=== PATIENT | male | born 1960 | race Caucasian/White ===

== ENCOUNTER 2024-03-10 15:12 | Emergency (ER) | payer OTHER, SELFPAY ==
[2024-03-10 15:29] VITALS: BP 140/85
--- NOTE | 2024-03-10 15:35 | ED.GENMED ---
ED Provider Triage
<Jeramy Ordoñez Jr., PA-C - Last Filed: 03/10/24 15:43>
-
Patient seen by provider in Triage?: Seen in Triage
Attestation: A medical screening examination has been initiated by a qualified medical provider. Based on the assessment performed at this time, it has been determined that an emergent medical condition may exist and the patient has been informed
that further medical evaluation and possible additional diagnostic testing may be needed.
HPI: 63-year-old male presenting to the emergency department with concerns of anxiety attack. Has a long history of this. Currently transitioning from venlafaxine to buspirone. Just recently stopped venlafaxine 3 days ago. Patient given dose of
Xanax here pending additional assessment.
GENERAL: Alert , in no apparent distress
EYE: No visual abnormalities.
NECK: Trachea midline
ENT: No visible abnormalities.
LUNGS: No acute respiratory distress
NEUROLOGICAL: Alert and oriented
SKIN: Skin intact. No visible changes.
MUSCULOSKELETAL: Moving extremities normally
PSYCH: Normal and appropriate interaction.
This is a medical evaluation conducted in person to initiate diagnostic evaluation and provide initial therapeutics. Please see further documentation by the treating clinician.
History of Present Illness
<Jeramy Ordoñez Jr., PA-C - Last Filed: 03/10/24 15:43>
General
Chief Complaint: Anxiety
Time Seen by Provider: 03/10/24 16:04
<RAINA Islas - Last Filed: 03/10/24 16:45>
General
Source: patient
Exam Limitations: none
Nursing documentation reviewed up to this point in time: agreed with
History of Present Illness
History of Present Illness:
Patient is a 63-year-old male who has a history of anxiety presents to the ER for evaluation. Patient reports for the past 2 weeks along with his family physician they have been weaning him off of Venlafaxine and stared Buspar. Patient reports he
has not tolerated this well and his anxiety has been worse. He also reports is a lot of other circumstances going around which is attributing to the cause of his anxiety. This morning he woke up with a panic attack. He does have Ativan at home
and took a dose at 9 AM. He was in contact with his family doctor and took an additional dose at 1 PM. He was given Xanax 0.5 mg prior to my exam during triage.
Patient now reports he is feeling much better he had a feeling of dread and that is improving. He never had any suicidal thoughts. He does have Ativan at home. He also was in contact with his family doctor before coming to the ER and he
instructed him to stop his BuSpar and restart Venlafaxine.
Patient has no other physical complaints.
Past History
<ALFREDO Horowitz Jr.-Anne - Last Filed: 03/10/24 15:43>
Past History
ED Past Medical History: GERD and Hypercholesterolemia
ED Past Surgical History: Other (Hernia)
Social History
Tobacco: Non-smoker
Living: with family
Employment: Employed
Family History
Family History: Negative Early CAD
Review of Systems
<RAINA Islas - Last Filed: 03/10/24 16:45>
Review of Systems
Allergies reviewed?: Yes
All Other Systems: ROS reviewed and negative except as documented in HPI and ROS
Constitutional: Reports no symptoms
Respiratory: Reports no symptoms
Cardiac: Reports no symptoms
ABD/GI: Reports no symptoms
: Reports no symptoms
Musculoskeletal: Reports no symptoms
Skin: Reports no symptoms
Neurological: Reports no symptoms
Psychiatric: Reports depression and anxiety; Denies suicidal
Phy Exam
<RAINA Islas - Last Filed: 03/10/24 16:45>
General Physical Exam
General Presentation: no apparent distress
General age: appears stated age
General Skin: warm and dry
General Habitus: obese
General Mental: alert
General Hydration: appears well hydrated
Cardiovascular Exam
Cardiovascular Exam: regular rate/rhythm, no murmur and normal peripheral pulses
Pulmonary Exam
Pulmonary Exam: lungs clear and no respiratory distress
Neurological Exam
Neurological Exam: alert and oriented x3
Musculoskeletal Exam
Musculoskeletal Exam: full ROM
Skin Exam
Skin Exam: normal color and warm/dry
Psychiatric Exam
Psychiatric Exam: normal mood/affect
Course
<Jeramy Ordoñez Jr., PA-C - Last Filed: 03/10/24 15:43>
Orders/Labs/Results
Orders:
Orders
03/10/24 15:39
Alprazolam [Xanax] 0.5 mg PO NOW STA
Vital Signs
Initial and Last Documented VS:
Initial Vital Signs
Temp Pulse Resp BP Pulse Ox
98.0 F 110 16 140/85 98
03/10/24 15:29 03/10/24 15:29 03/10/24 15:29 03/10/24 15:29 03/10/24 15:29
Last Documented Vital Signs
Temp Pulse Resp BP Pulse Ox
98.0 F 92 18 120/78 98
03/10/24 15:29 03/10/24 16:34 03/10/24 16:34 03/10/24 16:34 03/10/24 15:29
<RAINA Islas - Last Filed: 03/10/24 16:45>
Orders/Labs/Results
Orders:
Orders
03/10/24 15:39
Alprazolam [Xanax] 0.5 mg PO NOW STA
Vital Signs
Initial and Last Documented VS:
Initial Vital Signs
Temp Pulse Resp BP Pulse Ox
98.0 F 110 16 140/85 98
03/10/24 15:29 03/10/24 15:29 03/10/24 15:29 03/10/24 15:29 03/10/24 15:29
Last Documented Vital Signs
Temp Pulse Resp BP Pulse Ox
98.0 F 92 18 120/78 98
03/10/24 15:29 03/10/24 16:34 03/10/24 16:34 03/10/24 16:34 03/10/24 15:29
<RAINA Islas - Last Filed: 03/10/24 16:45>
MDM/Problems Addressed
Differential Diagnosis Includes:
Not limited to anxiety
MDM/Problems Addressed:
Patient has a longstanding history of anxiety and was recently being weaned off of his prior antidepressant and a new 1 was started. During this process his anxiety has increased. His family doctor was aware he was in touch with his family doctor
today. He does have Ativan as needed and took 2 doses at home prior to come to the ER. He does feel much better. Does have a plan in place to stop the new antidepressant buspirone and restart his previous 1. He is in very close contact with his
family doctor. He describes feeling very anxious and has a lot going on in addition to his current anxiety. He had a feeling of dread however denies any suicidal thoughts. He does feel much better feels well enough to go home. He was given a
very small dose of Xanax here in the ER however he has no acute distress. He is awake alert he is nondrowsy. Patient is on a much higher dose of Ativan at home and is a large male. Pt to f/ u with his pcp for further evaluation and management of
care. I did speak with crisis who will also drop off outpatient therapy referral info.
<RAINA Islas - Last Filed: 03/10/24 16:45>
*Critical Care Note
Total Time (30-74mins, 75-104mins- exclusive of procedures): Not Applicable
ED Attending Note
<Jeramy Ordoñez Jr., PA-C - Last Filed: 03/10/24 15:43>
-
Portions of this chart may have been created with voice recognition software.� Occasional wrong word or��sound alike� substitutions may have occurred due to the inherent limitations of voice recognition software.
Discharge Plan
Departure
Patient Disposition: Home (Routine Discharge)
Date of Disposition: 03/10/24
Time of Disposition: 16:43
Patient with high blood pressure during this ER visit?: Yes
Condition: Fair
Covid-19: Not Applicable
Discharge Problem:
Anxiety
Instructions: Anxiety, Adult (DC), BLOOD PRESSURE
Prescriptions:
No Action
Allopurinol
150 mg PO BID
multivitamin [Multi-Day] 1 EACH tablet
1 ea PO DAILY
omeprazole [Prilosec] 20 MG capsule,delayed release(DR/EC)
20 mg PO .EVERY OTHER DAY
Lipitor:
1 tab PO QPM
metformin 500 MG tablet
500 mg PO BID
venlafaxine [Effexor XR] 37.5 MG capsule,extended release 24hr
75 mg PO DAILY
lorazepam 1 MG tablet
1 mg PO PRN PRN (Reason: anxiety)
Activity Restrictions/Additional Instructions:
Continue to take your medications as prescribed by your family doctor. Please give your family doctor a call tomorrow to further discuss plan of care return if any worsening of symptoms.
Interventions
Interventions:
*Risk Screen - Suicide Last Done: 03/10/24 15:14
*General Assessment Last Done: 03/10/24 16:35
*Neglect/Abuse Screening Last Done: 03/10/24 15:29
ED- Fall Risk Assessment Last Done: 03/10/24 16:35
*ED COVID-19 Vaccine History Last Done: 03/10/24 16:35
ED-Psychological Assessment Last Done: 01/06/25 16:35
Discharge Date and Time
Print Language: KHMER
[2024-03-10] MEDS: XANAX 0.5 MG PO (15:43)
[2024-03-10 16:34] VITALS: BP 120/78
== END 2024-03-10 17:24 | disposition home or self-care (01) ==
LOC: EMR 15:12
PROVIDERS: EMERGENCY PHYSICIAN Emergency Medicine; FAMILY PHYSICIAN Family Medicine
DX: F41.9 Anxiety disorder, unspecified (principal); K21.9 Gastro-esophageal reflux disease without esophagitis; E78.00 Pure hypercholesterolemia, unspecified
CPT/HCPCS: 99282

== ENCOUNTER 2024-04-06 20:50 | Emergency (ER) | payer OTHER, SELFPAY ==
[2024-04-06 21:06] VITALS: BP 124/85
[2024-04-06 22:28] VITALS: BMI 36.0
[2024-04-06 22:40] VITALS: BP 97/77
[2024-04-06 22:53] LABS: % Basophils 0.3 % (0-2); % Eosinophils 1.4 % (0-6); % Immature Granulocytes 0.1 % (0-0.5); % Lymphocytes 37.6 % (20.5-51.1); % Monocytes 8.5 % (1.7-9.3); % Neutrophils 52.1 % (42.2-75.2); Absolute Eosinophils 0.1 10^3/uL (0-0.7); Absolute Lymphocytes 2.9 10^3/uL (1.2-3.4); Absolute Monocytes 0.7 10^3/uL (0.1-0.6); Hematocrit 44.9 % (39.0-52.0); Hemoglobin 14.8 g/dL (13.0-18.0); Mean Corpuscular Hgb 27.1 pg (27.0-31.0); Mean Corpuscular Volume 82.1 fL (80.0-94.0); Mean Platelet Volume 9.2 fL (7.4-10.4); Nucleated Red Blood Cells % 0 % (-); Platelet Count 232 10^3/uL (130-400); Red Blood Cell Count 5.47 10^6/uL (4.70-6.10); Red Cell Dist. Width 12.8 % (11.5-14.5); White Blood Cell Count 7.7 10^3/uL (4.8-10.8)
[2024-04-06 23:13] LABS: ALT (SGPT) 24 U/L (0-50); AST (SGOT) 28 U/L (17-59); Albumin 4.3 g/dl (3.5-5.0); Alkaline Phosphatase 82 U/L (38-126); Blood Urea Nitrogen 17 mg/dl (9-20); Carbon Dioxide 22 mmol/L (22-30); Chloride 104 mmol/L (98-107); Estimated Creatinine Clearance 117 ml/min; Glucose 106 mg/dl (70-99); Potassium 4.6 mmol/L (3.5-5.1); Sodium 137 mmol/L (135-145); Total Bilirubin 1.2 mg/dl (0.2-1.3); eGFR > 60.00
[2024-04-06 23:56] VITALS: BP 97/64
[2024-04-06 23:56] LABS: COVID-19 Antigen Negative (Negative)
[2024-04-07] MEDS: DUONEB 3 ML INH (00:22)
[2024-04-07 00:26] VITALS: BP 96/65
--- NOTE | 2024-04-07 00:31 | ED.GENMED ---
History of Present Illness
General
Chief Complaint: Cold/Flu/URI Symptoms
Source: patient
Exam Limitations: none
Time Seen by Provider: 04/06/24 22:51
Nursing documentation reviewed up to this point in time: agreed with
History of Present Illness
History of Present Illness:
Patient is a 63-year-old male with a history of [id number] diabetes, hyperlipidemia, GERD, depression and anxiety presents for shortness of breath and upper respiratory symptoms. Patient says that about 2 weeks ago he was in [place]
after flying there and he noticed that with exertion he would feel winded he also was having lightheadedness especially with moving around.. This is unusual for him. He decided he would come back home and get checked out but when he returned 1
week ago he started with a cough, cold, fever symptoms and suspected he had the flu. He stayed home a week and has not felt well, he has had a cough and some audible wheezing. Patient's not a smoker and does not use inhalers for asthma. He has
noticed that he has been extremely anxious all week which is unusual for him to feel this anxious, patient says he is not able to really sleep and he feels like his heart is racing. He started wondering if he was having a heart attack.
He has never seen a panel coverer here. Patient has not had a fever.
HE HAS BEEN ALTERNATING SOME XANAX 0.25 AND ATIVAN 1 MG (TAKING 1-2 ATIVAN A DAY AND MABYE A XANAX HERE AND THERE) FOR A FEW DAYS
THIS FEELS VERYSMILAR TO PREVIOUS PANIC ATTACKS
HE ATTRIBUTED THESE FEELINGS TO BEING ON A DIFF ANTIDPRESSANT LAST MONTH BUT WENT BACK TO [place] AND WAS SEEN HERE DURING THAT TIME OF ANXIETY
HE DOES FEEL TEMPORARILY BETTER WITH THE MEDS BUT THEN THE ANXIETY SETS IN
Past History
Past History
ED Past Medical History: GERD and Hypercholesterolemia
ED Past Surgical History: Other (Hernia)
Social History
Tobacco: Non-smoker
Living: with family
Employment: Employed
Family History
Family History: Negative Early CAD
Review of Systems
Review of Systems
Allergies reviewed?: Yes
All Other Systems: Not applicable
Phy Exam
Physical Exam
Physical Exam:
GENERAL: Alert , in no apparent distress, looks well
EYE: pupils equal and reactive
NECK: Supple
ENT: pharynx erythematous but no tonsillar hypertrophy or exudates
CARDIAC: Regular rate and rhythm, no edema
LUNGS: End expiratory wheezing, Vestiq cough, no tachypnea,
ABDOMEN: Soft, without focal tenderness, no r/g, no cvat, normal bowel sounds
NEUROLOGICAL: Alert and oriented, no focal neuro deficits
SKIN: Warm and dry, skin intact.
MUSCULOSKELETAL: No edema, well perfused.
PSYCH: Normal and appropriate interaction.
Sepsis
Sepsis Screening
Sepsis Assessment: Sepsis Ruled Out
Sepsis Screen
Sepsis Screen: Sepsis Ruled Out
Date: 04/07/24
Time: 03:56
Course
Orders/Labs/Results
Orders:
Orders
04/06/24 21:12
Chest [CR Chest - 2 Views ] Urgent
Comment:
Reason For Exam: SOB
04/06/24 22:31
COVID-19 Antigen Urgent
Source: Nasal Swab
Complete Blood Count/With Diff Urgent
Comprehensive Metabolic Panel Urgent
Influenza A+B Rapid Molecular Urgent
DON Source: Nasal Swab
Specimen Description:
04/06/24 23:17
Ipratropium/Albuterol Sulfate [Duoneb] 3 ml INH R NOW ONE
04/06/24 23:48
NT-proBNP Urgent
Troponin I Urgent
04/07/24 00:00
CT Chest PE Study Urgent
Reason For Exam: sob, jittery, anxious, exertional dyspnea
04/07/24 01:31
Electrocardiogram (*1) Urgent
Reason for Study: Shortness of Breath
EKG- Treatment ONCE
04/07/24 01:56
Prednisone [Deltasone] 50 mg PO NOW STA
04/07/24 02:07
Lorazepam [Ativan] 1 mg PO NOW STA
Abnormal Lab Results
04/06/24
22:31
Absolute Monos (auto) 0.7 H 10^3/uL
(0.1-0.6)
Glucose 106 H mg/dl
(70-99)
04/06/24 22:31
04/06/24 22:31
Vital Signs
Initial and Last Documented VS:
Initial Vital Signs
Temp Pulse Resp BP Pulse Ox
36.8 C 58 24 124/85 98
04/06/24 21:06 04/06/24 21:06 04/06/24 21:06 04/06/24 21:06 04/06/24 21:06
Last Documented Vital Signs
Temp Pulse Resp BP Pulse Ox
36.8 C 58 24 110/83 92
04/06/24 21:06 04/06/24 21:06 04/06/24 21:06 04/07/24 02:01 04/07/24 02:46
MDM/Problems Addressed
Differential Diagnosis Includes:
Anxiety, asthmatic bronchitis, pneumonia, PE, CHF aortic stenosis
MDM/Problems Addressed:
63-year-old male with a history of hyperlipidemia, anxiety, not insulin-dependent diabetes presents with 1 week of URI symptoms, fatigue, sore throat, cough for she has had some wheezing. He feels like all of his cold symptoms have made his anxiety
much worse. He is having trouble sleeping and using alternating Xanax or Ativan to help with those symptoms. He takes Effexor for anxiety and was recently on a different medication last month but switched back because he was not tolerating it.
Patient has been in contact with his family doctor regarding all of this anxiety but came in tonight thinking that maybe some of his anxiety and shortness of breath was actually a medical problem concerning his heart or lungs. Patient did not get
tested for the flu but presumed he had it. A week before the symptoms started he was having some exertional dyspnea which is new for him. He was never having chest pain. That seems to have gotten better and then he settled him with this cough and
wheezing. On exam he is a little bit anxious, his vital signs are stable he is afebrile. He does have end expiratory wheezing throughout and a slightly spastic sounding cough but is moving good air and is in no respiratory distress. I do not
appreciate a murmur. He has no edema. His EKG is sinus bradycardia in the 50s otherwise no ischemic changes. His troponin was negative. Patient's flu and COVID were also negative. His chest CT showed some nonacute findings, it was slightly
limited due to artifact and motion but there is no obvious PE or pneumonia. Patient was reassessed after DuoNeb and felt much better and initially did not have any anxiety with the neb. I offered him prednisone and counseled him on watching his
blood sugar, offered him albuterol with a spacer plus or minus Zithromax for bronchitis. He ultimately became quite anxious about going home. He said he is not really sure how to manage his anxiety. He is not suicidal. I did prescribe him a dose
of Ativan but then patient was driving home and opted to not take Ativan here. He feels comfortable going home at this point and is in no distress
He will reach out to his family doctor
*Critical Care Note
Total Time (30-74mins, 75-104mins- exclusive of procedures): Not Applicable
ED Attending Note
-
Portions of this chart may have been created with voice recognition software.� Occasional wrong word or��sound alike� substitutions may have occurred due to the inherent limitations of voice recognition software.
Discharge Plan
Departure
Patient Disposition: Home (Routine Discharge)
Date of Disposition: 04/07/24
Time of Disposition: 02:59
Patient with high blood pressure during this ER visit?: No
Condition: Fair
Covid-19: Not Applicable
Discharge Problem:
Acute bronchitis, Anxiety
Instructions: Acute Bronchitis, Adult (DC), Anxiety in adults - ED discharge instructions, Chest Pain CBC Follow Up
Prescriptions:
New
(DME) [employer] MDI Spacer Spacer
See Rx Instructions .Route Qty: 1 0RF
Rx Instructions:
As directed
prednisone 50 mg tablet
50 mg PO DAILY Qty: 3 0RF
albuterol sulfate 90 mcg/actuation HFA aerosol inhaler
2 puff inhalation Q6H PRN (Reason: shortness of breath or wheezing) Qty: 6.7 0RF
azithromycin [Zithromax] 250 mg tablet
250 mg PO DAILY Qty: 6 0RF
No Action
Allopurinol
150 mg PO BID
multivitamin [Multi-Day] 1 EACH tablet
1 ea PO DAILY
omeprazole [Prilosec] 20 MG capsule,delayed release(DR/EC)
20 mg PO .EVERY OTHER DAY
Lipitor:
1 tab PO QPM
metformin 500 MG tablet
500 mg PO BID
venlafaxine [Effexor XR] 37.5 MG capsule,extended release 24hr
75 mg PO DAILY
lorazepam 1 MG tablet
1 mg PO PRN PRN (Reason: anxiety)
Referrals:
Gt Gallo MD [Family Provider] -
Activity Restrictions/Additional Instructions:
YOUR SYPMTMOS ARE LIKELY DUE TO BRONCHITIS
TAKE PREDNISONE ONCE A DAY FOR 3 DAYS
AVOID HIGH SUGAR FOODS WHILE ON STEROIDS
USE THE INHALER 2 PUFFS EVERY 6 HOURS NEEDED FOR COUGH
TAKE ZITHROMAX ONCE A DAY FOR 5 DAYS
YOUR CAT SCAN AND EKG AND TROPONIN DID NOT SHOW ANY EMERGENCIES
PLEASE FOLLOW UP WITH A ELECTRO MECHANIC AN OUTPATIENT
RETURN FOR: SEVERE SYMPTOMS, PASSING OUT, SUICIDAL THUOGHTS, HIGH FEVER ORA [place] CONCERNS.
Interventions
Interventions:
*Risk Screen - Suicide Last Done: 04/06/24 22:28
*General Assessment Last Done: 04/06/24 22:28
*Neglect/Abuse Screening Last Done: 04/06/24 22:28
ED- Fall Risk Assessment Last Done: 04/06/24 22:28
*ED COVID-19 Vaccine History Last Done: 04/06/24 22:28
*Nursing Disposition Last Done: 04/07/24 03:00
ED- Pulmonary Assessment Last Done: 04/06/24 22:28
Discharge Date and Time
Discharge Date/Time: 04/07/24 03:00
Print Language: NAURUAN
[2024-04-07 00:32] LABS: NT-proBNP 103 pg/ml; Troponin I < 0.012 ng/ml
[2024-04-07 01:00] VITALS: BP 101/62
[2024-04-07 02:01] VITALS: BP 110/83
[2024-04-07] MEDS: DELTASONE 50 MG PO (02:59)
[2024-04-07] MEDS: ATIVAN 1 MG PO (03:02)
== END 2024-04-07 03:00 | disposition home or self-care (01) ==
LOC: EMR 20:50
PROVIDERS: Physician Assistant; EMERGENCY PHYSICIAN Emergency Medicine; FAMILY PHYSICIAN Family Medicine
DX: J20.9 Acute bronchitis, unspecified (principal); F41.9 Anxiety disorder, unspecified; E11.9 Type 2 diabetes mellitus without complications; E78.00 Pure hypercholesterolemia, unspecified; K21.9 Gastro-esophageal reflux disease without esophagitis
CPT/HCPCS: 99285; 94640; 71046; 71275; 80053; 83880; 84484; 85025; 87502; 87811; 93005; Q9967